=== PATIENT | female | born 1955 | race African-American/Black ===

== ENCOUNTER 2016-08-17 21:06 | Observation (INO) | payer OTHER ==
[2016-08-17 22:08] LABS: BASOPHIL 0.6 % (0-2.0); EOSINOPHIL 1.7 % (0-4.5); MCH 25.3 pg (25.7-33.7); MCHC 31.7 g/dl (32.0-36.0); MEAN CELL VOLUME 79.8 fl (80-96); MEAN PLT VOLUME 7.1 fl (7.5-11.1); NEUTROPHILS 59.8 % (42.8-82.8); PLATELET COUNT 345 K/MM3 (134-434); RDW 15.8 % (11.6-15.6); WHITE BLOOD COUNT 9.8 K/mm3 (4.0-10.0)
[2016-08-17 22:19] LABS: INR 0.95 (0.82-1.09); PROTHROMBIN TIME (PATIENT) 10.4 SEC (9.98-11.88)
--- NOTE | 2016-08-17 22:28 | PDOC ---
History of Present Illness - General History Source: Patient Exam Limitations: No Limitations - History of Present Illness Initial Comments: 08/18/16 00:04 The patient is a 61-year-old female with a significant past medical history of hypertension, diabetes, and two blocked arteries, and presents to the emergency department via EMS complaining of chest pain, dizziness, and shortness of breath for the last several days. She states she noticed the chest pain when she exerted herself at a family function. She describes the chest pain as 6/10 in severity, and localized to the left sternal border, without radiation. She reports associated nausea, dizziness, and diaphoresis. She was given sublingual nitroglycerine by EMS, and the symptoms resolved. Upon arrival to the ED, she reports no more chest pain and no other complaints. The patient denies headache. The patient denies fever, chills, abdominal pain, nausea, vomit, diarrhea and constipation. The patient denies dysuria, frequency , urgency and hematuria. Other past medical history: s/p endarterectomy Allergies: No known drug allergies Past Surgical History: endarterectomy Social History: Former smoker <Na Arrieta - Last Filed: 08/18/16 00:09> - General History Source: Patient <LeonVin - Last Filed: 08/18/16 19:49> - General Stated Complaint: CHEST PAIN Time Seen by Provider: 08/17/16 22:27 Past History <Na Arrieta - Last Filed: 08/18/16 00:09> <Vin Gaines - Last Filed: 08/18/16 19:49> - Past Medical History Allergies/Adverse Reactions: Allergies Allergy/AdvReac Type Severity Reaction Status Date / Time No Known Allergies Allergy Verified 08/17/16 21:39 Home Medications: Ambulatory Orders Aspirin [ASA -] 81 mg PO DAILY 08/17/16 Glyburide [Diabeta -] 1.25 mg PO DAILY 08/17/16 Hydrochlorothiazide [Hctz -] 25 mg PO DAILY 08/17/16 Losartan Potassium [Cozaar] 100 mg PO DAILY 08/17/16 Metformin HCl [Glucophage -] 500 mg PO DAILY 08/17/16 Venlafaxine HCl [Effexor -] 25 mg PO DAILY 08/17/16 Review of Systems - Review of Systems Able to Perform ROS?: Yes Comments:: 08/18/16 00:04 CONSTITUTIONAL: Present: (+) diaphoresis Absent: fever, chills, generalized weakness, malaise, loss of appetite HEENT: Absent: rhinorrhea, nasal congestion, throat pain, throat swelling, difficulty swallowing, mouth swelling, ear pain, eye pain, visual Changes CARDIOVASCULAR: Present: (+) chest pain Absent: syncope, palpitations, irregular heart rate, peripheral edema RESPIRATORY: Present: (+) dyspnea Absent: cough, orthopnea, wheezing, stridor, hemoptysis GASTROINTESTINAL: Present: (+) Nausea Absent: abdominal pain, abdominal distension, vomiting, diarrhea, constipation, melena, hematochezia GENITOURINARY: Absent: dysuria, frequency, urgency, hesitancy, hematuria, flank pain, genital pain MUSCULOSKELETAL: Absent: myalgia, arthralgia, joint swelling SKIN: Absent: rash, itching, pallor HEMATOLOGIC/IMMUNOLOGIC: Absent: easy bleeding, easy bruising, lymphadenopathy, frequent infections ENDOCRINE: Absent: unexplained weight gain, unexplained weight loss, heat intolerance, cold intolerance NEUROLOGIC: Present: (+) dizziness Absent: headache, focal weakness or paresthesias, unsteady gait, seizure, mental status changes, bladder or bowel incontinence PSYCHIATRIC: Absent: anxiety, depression, suicidal or homicidal ideation, hallucinations. <Na Arrieta - Last Filed: 08/18/16 00:09> *Physical Exam - Vital Signs Last Vital Signs Temp Pulse Resp BP Pulse Ox 97.5 F L 101 H 26 H 128/47 98 08/17/16 22:05 08/18/16 00:00 08/18/16 00:00 08/18/16 00:00 08/18/16 00:00 - Physical Exam Comments: 08/18/16 00:05 GENERAL: Well developed, well nourished. Awake and alert. No acute distress. HEENT: Normocephalic, atraumatic. PERRLA, EOMI. No conjunctival pallor. Sclera are non- icteric. Moist mucous membranes. Oropharynx is clear. NECK: Supple. Full ROM. No JVD. Carotid pulses 2+ and symmetric, without bruits. No thyromegaly. No lymphadenopathy. CARDIOVASCULAR: Regular rate and rhythm. No murmurs, rubs, or gallops. Distal pulses are 2+ and symmetric. PULMONARY: No evidence of respiratory distress. Lungs clear to auscultation bilaterally. No wheezing, rales or rhonchi. ABDOMINAL: Soft. Non-tender. Non-distended. No rebound or guarding. No organomegaly. Normoactive bowel sounds. MUSCULOSKELETAL Normal range of motion at all joints. No bony deformities or tenderness. No CVA tenderness. EXTREMITIES: No cyanosis. No clubbing. No edema. No calf tenderness. SKIN: Warm and dry. Normal capillary refill. No rashes. No jaundice. NEUROLOGICAL: Alert, awake, appropriate. Cranial nerves 2-12 intact. No deficits to light touch and temperature in face, upper extremities and lower extremities. No motor deficits in the in face, upper extremities and lower extremities. Normoreflexic in the upper and lower extremities. Normal speech. Toes are down-going bilaterally. Gait is normal without ataxia. PSYCHIATRIC: Cooperative. Good eye contact. Appropriate mood and affect. <Na Arrieta - Last Filed: 08/18/16 00:09> Heart Score/ECG Review - History History: Highly suspicious - Electrocardiogram EKG: Non specific repolarization disturbance - Age Age: 45-65 - Risk Factors Risk Factors Heart Score: Yes Hx Hypercholesterolemia, Yes Hx Hypertension, Yes Hx Diabetes, Yes Smoking History, Yes Hx Obesity Based on the list above the patient has:: >/=3 risk factors or Hx atherosclerotic disease - Troponin Troponin: </= normal limit - Score Heart Score - Total: 6 <Vin Gaines - Last Filed: 08/18/16 19:49> ED Treatment Course - LABORATORY CBC & Chemistry Diagram: 08/17/16 21:52 08/17/16 21:52 - ADDITIONAL ORDERS Additional order review: Laboratory Results 08/17/16 08/17/16 21:52 21:52 INR 0.95 Sodium 136 Potassium 3.9 Chloride 102 Carbon Dioxide 23 Anion Gap 11 BUN 22 H Creatinine 1.5 H Creat Clearance w eGFR 35.07 Random Glucose 174 H Calcium 9.4 Total Bilirubin 0.3 AST 22 ALT 28 Alkaline Phosphatase 79 Creatine Kinase 359 H CK-MB (CK-2) 1.997 Troponin I 0.07 H Total Protein 8.2 Albumin 4.2 08/17/16 21:52 RBC 4.53 MCV 79.8 L MCHC 31.7 L RDW 15.8 H MPV 7.1 L Neutrophils % 59.8 Lymphocytes % 33.0 Monocytes % 4.9 Eosinophils % 1.7 Basophils % 0.6 - Medications Given in the ED: ED Medications Discontinued Medications Generic Name Dose Route Start Last Admin Trade Name Nimisha PRN Reason Stop Dose Admin Aspirin 162 mg 08/17/16 23:45 08/18/16 00:00 Asa - PO 08/17/16 23:46 162 mg ONCE ONE Administration <Na Arrieta - Last Filed: 08/18/16 00:09> - LABORATORY CBC & Chemistry Diagram: 08/18/16 01:39 08/18/16 01:39 - ADDITIONAL ORDERS Additional order review: Laboratory Results 08/17/16 21:52 INR 0.95 08/17/16 21:52 RBC 4.53 MCV 79.8 L MCHC 31.7 L RDW 15.8 H MPV 7.1 L Neutrophils % 59.8 Lymphocytes % 33.0 Monocytes % 4.9 Eosinophils % 1.7 Basophils % 0.6 - RADIOLOGY Radiology Studies Ordered: Category Date Time Status CHEST X-RAY PORTABLE* [RAD] Stat Radiology 08/17/16 21:40 Taken <Vin Gaines - Last Filed: 08/18/16 19:49> Medical Decision Making - Medical Decision Making 08/18/16 19:49 Dr. Gaines: The scribe's documentation has been prepared under my direction and personally reviewed by me in its entirery. I confirm that the note above accurately reflects all work, treatment, procedures, and medical decision making performed by me. <Vin Gaines - Last Filed: 08/18/16 19:49> *DC/Admit/Observation/Transfer - Attestations Scribe Attestion: 08/18/16 00:05 Documentation prepared by Na Arrieta, acting as medical clinic manager for Vin Gaines DO. <Na Arrieta - Last Filed: 08/18/16 00:09> - Discharge Dispostion Admit: Yes <Vin Gaines - Last Filed: 08/18/16 19:49> Diagnosis at time of Disposition: Chest pain Qualifiers: Chest pain type: precordial chest pain Qualified Code(s): R07.2 - Precordial pain - Referrals
[2016-08-17 22:30] LABS: ALBUMIN 4.2 g/dl (3.4-5.0); CALCIUM 9.4 mg/dL (8.5-10.1); CREATININE 1.5 mg/dL (0.55-1.02)
[2016-08-17 22:34] VITALS: BMI 35.4
[2016-08-17 22:34] LABS: BILIRUBIN,TOTAL 0.3 mg/dL (0.2-1.0); TOT PROT 8.2 g/dl (6.4-8.2); TROPONIN I 0.07 ng/ml (0.00-0.05)
[2016-08-17] MEDS ORDERED: ASPIRIN 81 MG CHEWABLE TABLETS PO ONE (23:45)
[2016-08-17] MEDS ORDERED: ASPIRIN 81 MG CHEWABLE TABLETS ONE (23:54)
--- NOTE | 2016-08-18 | HP ---
[id number] HISTORY OF PRESENT ILLNESS: Patient is a 61 year old female with pmhx diabetes, hypertension, and depression who presents with chest pain. Patient notes that she was out with her friends having dinner, dancing and she began to experience midsternal chest discomfort as she describes squeezing pain. She notes that she has been having this chest pain for few days now and she usually makes a fist and presses to her midsternal area to alleviate the pain but today the pain was worse. She notes that upon arrival of EMS her chest pain was alleviated with nitroglycerin tablet. She notes that she developed tingling in her fingertips and was diaphoretic. Patient also reports drinking 2-3 beers and some rum at dinner. Patient reports that she was told by her PCP that her kidneys were dry and that she needs to drink more water. She denies any chest pain, SOB, chest pressure, headache, palpitations, diaphoresis or dizziness at the moment. ER course was notable for: (1) EKG normal sinus (2) Troponin mild elevation 0.07 (3) Elevated creatinine 1.5 Recent Travel: none PAST MEDICAL HISTORY: diabetes, hypertension and depression PAST SURGICAL HISTORY: Carotid endarterectomy Social History: Smoking: no Alcohol: yes Drugs: no Family History: noncontributory Allergies No Known Allergies Allergy (Verified 08/17/16 21:39) HOME MEDICATIONS: Medication Instructions Recorded Aspirin [ASA -] 81 mg PO DAILY 08/17/16 Glyburide [Diabeta -] 1.25 mg PO DAILY 08/17/16 Hydrochlorothiazide [Hctz -] 0 mg PO DAILY 08/17/16 Losartan Potassium [Cozaar] 100 mg PO DAILY 08/17/16 Metformin HCl [Glucophage -] 500 mg PO DAILY 08/17/16 Venlafaxine HCl [Effexor -] 0 mg PO ASDIR 08/17/16 REVIEW OF SYSTEMS CONSTITUTIONAL: Absent: fever, chills, diaphoresis, generalized weakness, malaise, loss of appetite, weight change HEENT: Absent: rhinorrhea, nasal congestion, throat pain, throat swelling, difficulty swallowing, mouth swelling, ear pain, eye pain, visual changes CARDIOVASCULAR: Present: chest pain Absent: syncope, palpitations, irregular heart rate, lightheadedness, peripheral edema RESPIRATORY: Absent: cough, shortness of breath, dyspnea with exertion, orthopnea, wheezing, stridor, hemoptysis GASTROINTESTINAL: Absent: abdominal pain, abdominal distension, nausea, vomiting, diarrhea, constipation, melena, hematochezia GENITOURINARY: Absent: dysuria, frequency, urgency, hesitancy, hematuria, flank pain, genital pain MUSCULOSKELETAL: Absent: myalgia, arthralgia, joint swelling, back pain, neck pain SKIN: Absent: rash, itching, pallor HEMATOLOGIC/IMMUNOLOGIC: Absent: easy bleeding, easy bruising, lymphadenopathy, frequent infections ENDOCRINE: Absent: unexplained weight gain, unexplained weight loss, heat intolerance, cold intolerance NEUROLOGIC: Absent: headache, focal weakness or paresthesias, dizziness, unsteady gait, seizure, mental status changes, bladder or bowel incontinence PSYCHIATRIC: Absent: anxiety, depression, suicidal or homicidal ideation, hallucinations. PHYSICAL EXAMINATION Vital Signs - 24 hr 08/17/16 08/17/16 08/18/16 22:05 22:15 00:00 Temperature 97.5 F L Pulse Rate 84 84 Pulse Rate [ 101 H Radial] Respiratory 18 26 H Rate Blood Pressure 119/53 Blood Pressure 128/47 [Right Arm] O2 Sat by Pulse 97 97 98 Oximetry (%) GENERAL: +Obese. Awake, alert, and fully oriented, in no acute distress. HEAD: Normal with no signs of trauma. EYES: Pupils equal, round and reactive to light, extraocular movements intact, sclera anicteric, conjunctiva clear. No lid lag. EARS, NOSE, THROAT: Ears normal, nares patent, oropharynx clear without exudates. Moist mucous membranes. NECK: Normal range of motion, supple without lymphadenopathy, JVD, or masses. LUNGS: Breath sounds equal, clear to auscultation bilaterally. No wheezes, and no crackles. No accessory muscle use. HEART: Regular rate and rhythm, normal S1 and S2 without murmur, rub or gallop. ABDOMEN: Soft, nontender, not distended, normoactive bowel sounds, no guarding, no rebound, no masses. No hepatomegaly or splenomegaly. MUSCULOSKELETAL: Normal range of motion at all joints. No bony deformities or tenderness. No CVA tenderness. UPPER EXTREMITIES: 2+ pulses, warm, well-perfused. No cyanosis. No clubbing. Cap refill <2 seconds. No peripheral edema. LOWER EXTREMITIES: 2+ pulses, warm, well-perfused. No calf tenderness. No peripheral edema. NEUROLOGICAL: Cranial nerves II-XII intact. Normal speech. Normal gait. PSYCHIATRIC: Cooperative. Good eye contact. Appropriate mood and affect. SKIN: Warm, dry, normal turgor, no rashes or lesions noted. Laboratory Results - last 24 hr 08/17/16 08/17/16 08/17/16 21:52 21:52 21:52 WBC 9.8 RBC 4.53 Hgb 11.4 Hct 36.1 MCV 79.8 L MCHC 31.7 L RDW 15.8 H Plt Count 345 MPV 7.1 L Neutrophils % 59.8 Lymphocytes % 33.0 Monocytes % 4.9 Eosinophils % 1.7 Basophils % 0.6 INR 0.95 Sodium 136 Potassium 3.9 Chloride 102 Carbon Dioxide 23 Anion Gap 11 BUN 22 H Creatinine 1.5 H Creat Clearance w eGFR 35.07 Random Glucose 174 H Calcium 9.4 Total Bilirubin 0.3 AST 22 ALT 28 Alkaline Phosphatase 79 Creatine Kinase 359 H CK-MB (CK-2) 1.997 Troponin I 0.07 H Total Protein 8.2 Albumin 4.2 Imaging CXR- no acute pathology EKG - Normal sinus rhythm at rate of 92 ASSESSMENT/PLAN: 61 year old female with pmhx of hypertension, diabetes and depression who presents with chest pain. 1.) Chest pain - Rule out ACS - Trend troponin/ ECG - Continue aspirin - Nitro/morphine PRN pain - O2 2L NC - Beta hailee - Cardiology consult - ECHO - Lipid panel - A1C 2.) Acute renal failure - Gentle IVF - Urine electrolytes - Avoid nephrotoxins - Trend creatinine 3.) HTN -Continue home meds 4.) Depression -Continue home meds 5.) Diabetes - Fingers sticks q4 - Hold Metformin - RISS Documentation prepared by Sandra Alberts, acting as medical dermatologist for Royce Martin D.O. <Royce Martin - Last Filed: 08/18/16 06:45> Visit type - Emergency Visit Emergency Visit: Yes Care time: The patient presented to the Emergency Department on the above date and was hospitalized for further evaluation of their emergent condition. - New Patient This patient is new to me today: Yes Date on this admission: 08/18/16 - Critical Care Critical Care patient: No
[2016-08-18] MEDS ORDERED: METOPROLOL TARTRATE 25 MG TABLET (FP) PO ONE (00:04)
[2016-08-18] MEDS ORDERED: METOPROLOL TARTRATE 25 MG TABLET (FP) ONE (00:33)
[2016-08-18] MEDS: SODIUM CHLORIDE 1,000 ML IV SCH (01:33)
[2016-08-18 01:51] LABS: MCH 25.2 pg (25.7-33.7); MCHC 31.7 g/dl (32.0-36.0); MEAN CELL VOLUME 79.4 fl (80-96); MEAN PLT VOLUME 7.1 fl (7.5-11.1); PLATELET COUNT 318 K/MM3 (134-434); RDW 15.8 % (11.6-15.6)
[2016-08-18 02:13] LABS: CHOLESTEROL 140 mg/dL (50-200)
[2016-08-18 02:21] LABS: CALCIUM 8.9 mg/dL (8.5-10.1); CREATININE 1.3 mg/dL (0.55-1.02); MAGNESIUM 2.1 mg/dL (1.8-2.4)
[2016-08-18 02:39] LABS: LDL CHOLESTEROL (ONLY SJRH) 83 mg/dL (5-100)
--- NOTE | 2016-08-18 09:52 | EKG ---
Test Reason : Blood Pressure : / mmHG Vent. Rate : 092 BPM Atrial Rate : 092 BPM P-R Int : 146 ms QRS Dur : 096 ms QT Int : 360 ms P-R-T Axes : 056 056 -10 degrees QTc Int : 445 ms NORMAL SINUS RHYTHM NONSPECIFIC ST AND T WAVE ABNORMALITY ABNORMAL ECG NO PREVIOUS ECGS AVAILABLE Confirmed by MAYRA NGUYEN, LJ ([id number]) on 08/18/2016 9:52:41 AM Referred By: Overread By: LJ NUNEZ MD
[2016-08-18] MEDS: ASPIRIN 81 MG CHEWABLE TABLETS PO SCH (10:27)
[2016-08-18] MEDS ORDERED: HEMOQUE TEST 1 EACH EACH ONE (11:20)
[2016-08-18] MEDS: INSULIN SLIDING SCALE (NOVOLOG) 1 VIAL SQ SCH ×3 (11:26→21:40)
--- NOTE | 2016-08-18 12:01 | CONSULT ---
Consult Consult Specialty:: Cardiology Referred by:: Hospitalist Reason for Consultation:: Cardiac evaluation - History of Present Illness Chief Complaint: Chest pain History of Present Illness: Patient is a 61 year old female with underlying history of CAD - non-obstructive via cardiac catheterization/coronary angiogram last in 2013 at [facility] in [place], in addition HTN and type 2 DM who presents to ED with complaints of mid substernal chest pressure and shortness of breath. Chest discomfort was non-radiating and denies palpitations. She was given SL NTG and pain gradually subsided. She denies paroxysmal nocturnal dyspnea or orthopnea. She denies fever or chills. She denies headache or lightheadedness. Cardiology consultation was called for further evaluation. - History Source History Provided By: Patient, Medical Record Limitations to Obtaining History: No Limitations - Past Medical History Cardio/Vascular: Yes: CAD, HTN Endocrine: Yes: Diabetes Mellitus - Alcohol/Substance Use Hx Alcohol Use: No - Smoking History Smoking history: Former smoker Have you smoked in the past 12 months: No Home Medications - Allergies Allergies/Adverse Reactions: Allergies Allergy/AdvReac Type Severity Reaction Status Date / Time No Known Allergies Allergy Verified 08/17/16 21:39 - Home Medications Home Medications: Ambulatory Orders Aspirin [ASA -] 81 mg PO DAILY 08/17/16 Glyburide [Diabeta -] 1.25 mg PO DAILY 08/17/16 Hydrochlorothiazide [Hctz -] 0 mg PO DAILY 08/17/16 Losartan Potassium [Cozaar] 100 mg PO DAILY 08/17/16 Metformin HCl [Glucophage -] 500 mg PO DAILY 08/17/16 Venlafaxine HCl [Effexor -] 0 mg PO ASDIR 08/17/16 Family Disease History - Family Disease History Family History: Denies Review of Systems - Review of Systems Constitutional: denies: Chills, Fever Cardiovascular: reports: Chest Pain, Shortness of Breath. denies: Palpitations Respiratory: reports: SOB. denies: Cough, Hemoptysis, Orthopnea, PND Gastrointestinal: denies: Abdominal Pain, Constipation, Diarrhea, Melena, Nausea , Rectal Bleeding, Vomiting Genitourinary: denies: Dysuria Neurological: denies: Dizziness, Headache, Seizure, Syncope Vital Signs: Vital Signs Temperature 97.8 F 08/18/16 10:00 Pulse Rate 73 08/18/16 10:00 Respiratory Rate 20 01/03/17 10:00 Blood Pressure 158/86 08/18/16 10:00 O2 Sat by Pulse Oximetry (%) 99 08/18/16 06:52 Neck: Yes: Supple Respiratory: Yes: CTA Bilaterally Gastrointestinal: Yes: Normal Bowel Sounds, Soft, Abdomen, Obese. No: Tenderness Cardiovascular: Yes: Regular Rate and Rhythm JVD: No Carotid Bruit: No PMI: Non-Displaced Heart Sounds: Yes: S1, S2 Edema: No - Other Data Labs, Other Data: INR, PTT INR 0.95 (0.82-1.09) 08/17/16 21:52 Laboratory Results - last 24 hr 08/17/16 08/17/16 08/17/16 21:52 21:52 21:52 WBC 9.8 RBC 4.53 Hgb 11.4 Hct 36.1 MCV 79.8 L MCHC 31.7 L RDW 15.8 H Plt Count 345 MPV 7.1 L Neutrophils % 59.8 Lymphocytes % 33.0 Monocytes % 4.9 Eosinophils % 1.7 Basophils % 0.6 INR 0.95 Sodium 136 Potassium 3.9 Chloride 102 Carbon Dioxide 23 Anion Gap 11 BUN 22 H Creatinine 1.5 H Creat Clearance w eGFR 35.07 POC Glucometer Random Glucose 174 H Hemoglobin A1c % Calcium 9.4 Magnesium Total Bilirubin 0.3 AST 22 ALT 28 Alkaline Phosphatase 79 Creatine Kinase 359 H CK-MB (CK-2) 1.997 Troponin I 0.07 H Total Protein 8.2 Albumin 4.2 Triglycerides Cholesterol Total LDL Cholesterol HDL Cholesterol Ur Random Sodium Ur Random Potassium Ur Random Chloride 08/18/16 08/18/16 08/18/16 01:39 01:39 01:39 WBC 10.0 RBC 4.24 Hgb 10.7 Hct 33.6 MCV 79.4 L MCHC 31.7 L RDW 15.8 H Plt Count 318 MPV 7.1 L Neutrophils % Lymphocytes % Monocytes % Eosinophils % Basophils % INR Sodium 137 Potassium 3.6 Chloride 99 Carbon Dioxide 26 Anion Gap 12 BUN 23 H Creatinine 1.3 H Creat Clearance w eGFR POC Glucometer Random Glucose 118 H D Hemoglobin A1c % Calcium 8.9 Magnesium 2.1 Total Bilirubin AST ALT Alkaline Phosphatase Creatine Kinase CK-MB (CK-2) Troponin I 0.11 H Total Protein Albumin Triglycerides Cholesterol Total LDL Cholesterol HDL Cholesterol Ur Random Sodium Ur Random Potassium Ur Random Chloride 08/18/16 08/18/16 08/18/16 01:39 01:39 02:24 WBC RBC Hgb Hct MCV MCHC RDW Plt Count MPV Neutrophils % Lymphocytes % Monocytes % Eosinophils % Basophils % INR Sodium Potassium Chloride Carbon Dioxide Anion Gap BUN Creatinine Creat Clearance w eGFR POC Glucometer 112.95230 Random Glucose Hemoglobin A1c % Calcium Magnesium Total Bilirubin AST ALT Alkaline Phosphatase Creatine Kinase CK-MB (CK-2) Troponin I Total Protein Albumin Triglycerides 338 H Cholesterol 140 Total LDL Cholesterol 83 HDL Cholesterol 31 L Ur Random Sodium 37 Ur Random Potassium 22.7 Ur Random Chloride 19 08/18/16 08/18/16 04:00 06:17 WBC RBC Hgb Hct MCV MCHC RDW Plt Count MPV Neutrophils % Lymphocytes % Monocytes % Eosinophils % Basophils % INR Sodium Potassium Chloride Carbon Dioxide Anion Gap BUN Creatinine Creat Clearance w eGFR POC Glucometer Random Glucose Hemoglobin A1c % 7.9 H Calcium Magnesium Total Bilirubin AST ALT Alkaline Phosphatase Creatine Kinase CK-MB (CK-2) Troponin I 0.10 H Total Protein Albumin Triglycerides Cholesterol Total LDL Cholesterol HDL Cholesterol Ur Random Sodium Ur Random Potassium Ur Random Chloride Sinus rhythm with nonspecific ST-T abnormality in inferior leads Echo: Pending Imaging - Results Chest X-ray: Report Reviewed (Unremarkable) EKG: Report Reviewed Problem List - Problems (1) Chest pain Code(s): R07.9 - CHEST PAIN, UNSPECIFIED Qualifiers: Chest pain type: precordial chest pain Qualified Code(s): R07.2 - Precordial pain (2) CAD (coronary artery disease) Code(s): I25.10 - ATHSCL HEART DISEASE OF [place] CORONARY ARTERY W/O ANG PCTRS Qualifiers: Coronary Disease-Associated Artery/Lesion type: [place] artery [place] vs. transplanted heart: [place] heart Associated angina: with unstable angina Qualified Code(s): I25.110 - Atherosclerotic heart disease of [place] coronary artery with unstable angina pectoris (3) Diabetes mellitus Code(s): E11.9 - TYPE 2 DIABETES MELLITUS WITHOUT COMPLICATIONS Qualifiers: Diabetes mellitus type: type 2 Diabetes mellitus complication status: without complication Diabetes mellitus nursing home insulin use: without nursing home use Qualified Code(s): E11.9 - Type 2 diabetes mellitus without complications (4) HTN (hypertension) Code(s): I10 - ESSENTIAL (PRIMARY) HYPERTENSION Qualifiers: Hypertension type: essential hypertension Qualified Code(s): I10 - Essential (primary) hypertension (5) Hypertriglyceridemia Code(s): E78.1 - PURE HYPERGLYCERIDEMIA Assessment/Plan 1. Chest pain syndrome - CAD non-obstructive, angina pectoris - ACS 2. HTN 3. Type 2 DM 4. Exogenous obesity 5. Hypertriglyceredemia PLAN: 1. Serial cardiac enzyme - trending down 2. Restart Losartan +/- low dose beta hailee 3. ASA 4. Transthoracic echocardiography to assess LV and valvular function 5. Consider nuclear myocardial perfusion imaging 6. Resume diabetes mellitus treatment 7. Obtain cardiac catheterization report from [facility] Further plans are to follow Samuel Dhillon MD
--- NOTE | 2016-08-18 13:09 | PN ---
Physical Exam: SUBJECTIVE: Patient seen and examined. She was laying in the stretcher in the ED, in no acute distress. States she had some very mild sternal discomfort this morning but has improved since she received Nitro from EMS. She denies shortness of breath. Tolerating room air. OBJECTIVE: Vital Signs Period Temp Pulse Resp BP Sys/Dubois Pulse Ox Last 24 Hr 97.8 F 73 20-20 158/86 99 GENERAL: The patient is awake, alert, and fully oriented, in no acute distress HEAD: Normal with no signs of trauma. EYES: PERRL, extraocular movements intact, sclera anicteric, conjunctiva clear. No ptosis. ENT: Ears normal, nares patent, oropharynx clear without exudates, moist mucous membranes. NECK: Trachea midline, full range of motion, supple. LUNGS: Breath sounds equal, clear to auscultation bilaterally, no wheezes HEART: Regular rate and rhythm ABDOMEN: Soft, nontender, nondistended, normoactive bowel sounds EXTREMITIES: 2+ pulses, warm, well-perfused, no edema. NEUROLOGICAL: Normal speech, gait not observed. PSYCH: Normal mood, normal affect. SKIN: dry scar on right side of neck s/p carotid endarterectomy Generic Name Dose Route Start Last Admin Trade Name Freq PRN Reason Stop Dose Admin Aspirin 81 mg 08/18/16 10:00 08/18/16 10:27 Asa - PO 81 mg DAILY G[place]ENIA Administration Sodium Chloride 1,000 mls @ 75 mls/hr 08/18/16 00:45 08/18/16 01:33 Normal Saline - IV 75 mls/hr ASDIR G[place]IA Administration Insulin Aspart 1 vial 08/18/16 07:00 08/18/16 11:26 Novolog Vial Sliding Scale - SQ Not Given ACHS [facility] Protocol Losartan Potassium 50 mg 08/18/16 12:45 Cozaar - PO DAILY [facility] Metoprolol Succinate 25 mg 08/19/16 10:00 Toprol Xl - PO DAILY [place] ASSESSMENT/PLAN: Patient is a 61 year old female with a significant past medical history of diabetes mellitus, hypertension, carotid artery disease s/p right carotid endarterectomy in 2006 and depression. She reports being in her usual state of health yesterday and was out with her family and friends having dinner, dancing and drinking when she began to experience a sudden onset of midsternal chest pain/discomfort that she describes as "tightness". She describes the "tightness " as non radiating but was accompanied with tingling in her fingertips with diaphoresis. Upon arrival of EMS, the tightness in her chest subsided after Nitroglycerin was administered. During my evaluation, she reported that the chest tightness has subsided. She denies any further chest pain, shortness of breath, palpitations, finger numbness, diaphoresis or dizziness. Called patient PCP and Endrocrinologist Dr. Batsheva Baugh and spoke to Delfina. Delfina to fax patient's medical records to us (fax no. provided). Medical reports include recent cardiac workup (EKG and cardiac cath). Cardiology: Chest Pain - Acute Assessment/Plan: Rule out ACS. Chest pain has resolved. Troponins 0.11, 0.10, awaiting third troponin EKG: Normal sinus rhythm with non specific ST and T wave abnormality, no previous EKG to compare On ASA 81mg, Metoprolol 25mg daily, Losartan 50mg daily. Nitro as needed for chest pain, Morphine as needed, supplemental oxygen prn Echo pending Hypertension - chronic Assessment/Plan: hypertension controlled on Metoprolol 25mg daily, Losartan 50mg daily. Monitor BPs Hyperlipidemia - chronic Assessment/Plan: Started on Lipitor 40mg at HS : Acute Renal Failure - most likely chronic secondary to home med of HCTZ Assessment/Plan: Trend BUN/Creatinine with gentle hydration on NS at 75cc/hr Hold home med of HCTZ Endocrine: Diabetes Mellitus - chronic Assessment/Plan: BGMs and Novolog sliding scale. Holding home meds Psych: Depression - chronic Assessment/Plan: Continue Effexor F.E.N. Fluids: Normal Saline @ 75/cc/hr Electrolytes: noted dehydration, home HCTZ on hold Nutrition: Diabetic diet Prophylaxis: SCDs, ambulation GI: Colace PRN Disposition: Requires observation. Full Code. Visit type - Emergency Visit Emergency Visit: Yes ED Registration Date: 08/18/16 Care time: The patient presented to the Emergency Department on the above date and was hospitalized for further evaluation of their emergent condition. - New Patient This patient is new to me today: Yes Date on this admission: 08/18/16 - Critical Care Critical Care patient: No - Discharge Referral Referred to [facility] Med P.C.: No
[2016-08-18] MEDS: LOSARTAN POTASSIUM 50 MG TABLET (FP) PO SCH (13:12)
[2016-08-18] MEDS ORDERED: morphine CARPU-JECT 2 MG/1 ML DISP.SYRIN IVPUSH PRN (17:49)
[2016-08-18] MEDS: ATORVASTATIN CA 40 MG TABLET (FP) PO SCH (21:40)
[2016-08-19] MEDS: INSULIN SLIDING SCALE (NOVOLOG) 1 VIAL SQ SCH ×4 (06:15→22:05)
[2016-08-19] MEDS: SODIUM CHLORIDE 1,000 ML IV SCH (06:16)
[2016-08-19 08:20] LABS: TROPONIN I < 0.02 ng/ml (0.00-0.05)
[2016-08-19 11:43] LABS: ANION GAP 10 (8-16); CALCIUM 8.4 mg/dL (8.5-10.1); CO2 24 mmol/L (21-32); CREATININE 0.9 mg/dL (0.55-1.02); GLUCOSE,RANDOM 117 mg/dL (74-106)
--- NOTE | 2016-08-19 12:43 | PN ---
Progress Note (short form) - Note Progress Note: S: 61 year old female admitted with chest pain syndrome. History of CAD, angina pectoris, carotid artery disease, s/p right carotid endarterectomy, hypertension, HCVD, NIDDM. No further episodes of chest pain or discomfort reported. No dyspnea, PND, or orthopnea. No palpitations, lightheadedness, dizziness, or syncope. Active Medications Generic Name Dose Route Start Last Admin Trade Name Freq PRN Reason Stop Dose Admin Aspirin 81 mg 08/18/16 10:00 08/18/16 10:27 Asa - PO 81 mg DAILY [place] Administration Atorvastatin Calcium 40 mg 08/18/16 22:00 08/18/16 21:40 Lipitor - PO Not Given HS [place] Sodium Chloride 1,000 mls @ 75 mls/hr 08/18/16 00:45 08/19/16 06:16 Normal Saline - IV 75 mls/hr ASDIR [place] Administration Insulin Aspart 1 vial 08/18/16 07:00 08/19/16 06:15 Novolog Vial Sliding Scale - SQ Not Given ACHS [place] Protocol Losartan Potassium 50 mg 08/18/16 12:45 08/18/16 13:12 Cozaar - PO 50 mg DAILY [place] Administration Metoprolol Succinate 25 mg 08/19/16 10:00 Toprol Xl - PO DAILY [place] Morphine Sulfate 1 mg 08/18/16 17:49 Morphine Injection - IVPUSH 08/19/16 17:48 Q4H PRN PAIN Venlafaxine HCl 25 mg 08/19/16 10:00 Effexor - PO DAILY [facility] O: 61 year old obese female was in no acute distress. No pallor, cyanosis, clubbing, or jaundice. Last Vital Signs Temp Pulse Resp BP Pulse Ox 98.1 F 67-regular 18 121/55 100 08/18/16 22:00 08/19/16 06:00 08/19/16 06:00 08/19/16 06:00 08/18/16 21:00 NECK: Supple, no JVD, negative HJR, carotids were equal and upstrokes were normal, bilateral carotid bruits, well healed right carotid endarterectomy scar , no thyromegaly appreciated. HEART: PMI was in the 5th intercostal space, no heaves or thrills, S1 and S2 were normal. No murmurs or gallops were appreciated. LUNGS: Clear on auscultation bilaterally. ABDOMEN: Soft, nontender, no hepatosplenomegaly appreciated, and no palpable masses were felt. EXTREMITIES: No calf tenderness or dependent edema. Pulses are normal. CBC, BMP 08/18/16 01:39 08/19/16 05:35 Laboratory Results - last 24 hr 08/18/16 08/18/16 08/18/16 18:20 18:30 21:37 Sodium Potassium Chloride Carbon Dioxide Anion Gap BUN Creatinine POC Glucometer 165 Random Glucose Calcium Creatine Kinase 401 H CK-MB (CK-2) Troponin I 0.02 Cancelled 08/19/16 08/19/16 08/19/16 05:35 05:35 05:59 Sodium 142 Cancelled Potassium 4.5 D Cancelled Chloride 108 H Cancelled Carbon Dioxide 24 Cancelled Anion Gap 10 Cancelled BUN 17 D Cancelled Creatinine 0.9 D Cancelled POC Glucometer 123 Random Glucose 117 H Cancelled Calcium 8.4 L Cancelled Creatine Kinase 330 H CK-MB (CK-2) 1.807 Troponin I < 0.02 Impression: 1. History of CAD, angina pectoris. 2. Chest pain syndrome most likely related to # 1. 3. Hypertension, hypertensive cardiovascular disease. 4. Hypercholesterolemia. 5. Hx of NIDDM. 6. Exogenous obesity. Recommendations: 1. Myoview stress test 2. Obtain cardiac catheterization report from PCP. 3. Risk modifications. 4. Progressive ambulation. 5. Further suggestions will depend upon the results of the above mentioned tests. 1252 08/19/16 Documentation prepared by Jennifer Grimm, acting as emergency medical technician/driver for Clyde Vanegas MD. Problem List - Problems (1) CAD (coronary artery disease) Code(s): I25.10 - ATHSCL HEART DISEASE OF [place] CORONARY ARTERY W/O ANG PCTRS Qualifiers: Coronary Disease-Associated Artery/Lesion type: [place] artery [place] vs. transplanted heart: [place] heart Associated angina: with unstable angina Qualified Code(s): I25.110 - Atherosclerotic heart disease of [place] coronary artery with unstable angina pectoris (2) Chest pain Code(s): R07.9 - CHEST PAIN, UNSPECIFIED Qualifiers: Chest pain type: precordial chest pain Qualified Code(s): R07.2 - Precordial pain (3) Diabetes mellitus Code(s): E11.9 - TYPE 2 DIABETES MELLITUS WITHOUT COMPLICATIONS Qualifiers: Diabetes mellitus type: type 2 Diabetes mellitus complication status: without complication Diabetes mellitus [employer] insulin use: without [employer] use Qualified Code(s): E11.9 - Type 2 diabetes mellitus without complications (4) HTN (hypertension) Code(s): I10 - ESSENTIAL (PRIMARY) HYPERTENSION Qualifiers: Hypertension type: essential hypertension Qualified Code(s): I10 - Essential (primary) hypertension (5) Hypertriglyceridemia Code(s): E78.1 - PURE HYPERGLYCERIDEMIA
[2016-08-19] MEDS ORDERED: DIPYRIDAMOLE 50 MG/10 ML VIAL IVPB ONE (14:08)
--- NOTE | 2016-08-19 15:03 | PN ---
Physical Exam: SUBJECTIVE: Patient seen and examined. She denies current chest pressure/ tightness. She prefers not to take several medications OBJECTIVE: Vital Signs Period Temp Pulse Resp BP Sys/Dubois Pulse Ox Last 24 Hr 98.1 F 67-77 18-18 112-121/47-55 100 PE Neuro: alert, awake, cn 2-12intact HEENT: R carotid neck scar healed Pulm: CTAB CV: s1 s2 rrr + b/l carotid bruit Abd: s nt nd + bs Ext: warm, no le edema Laboratory Results - last 24 hr 08/18/16 08/18/16 08/18/16 18:20 18:30 21:37 Sodium Potassium Chloride Carbon Dioxide Anion Gap BUN Creatinine POC Glucometer 165 Random Glucose Calcium Creatine Kinase 401 H CK-MB (CK-2) Troponin I 0.02 Cancelled 08/19/16 08/19/16 08/19/16 05:35 05:35 05:59 Sodium 142 Cancelled Potassium 4.5 D Cancelled Chloride 108 H Cancelled Carbon Dioxide 24 Cancelled Anion Gap 10 Cancelled BUN 17 D Cancelled Creatinine 0.9 D Cancelled POC Glucometer 123 Random Glucose 117 H Cancelled Calcium 8.4 L Cancelled Creatine Kinase 330 H CK-MB (CK-2) 1.807 Troponin I < 0.02 Active Medications Generic Name Dose Route Start Last Admin Trade Name Nimisha PRN Reason Stop Dose Admin Aspirin 81 mg 08/18/16 10:00 08/18/16 10:27 Asa - PO 81 mg DAILY [place] Administration Atorvastatin Calcium 40 mg 08/18/16 22:00 08/18/16 21:40 Lipitor - PO Not Given HS [place] Sodium Chloride 1,000 mls @ 75 mls/hr 08/18/16 00:45 08/19/16 06:16 Normal Saline - IV 75 mls/hr ASDIR [place] Administration Insulin Aspart 1 vial 08/18/16 07:00 08/19/16 08:00 Novolog Vial Sliding Scale - SQ Not Given ACHS [place] Protocol Losartan Potassium 50 mg 08/18/16 12:45 08/18/16 13:12 Cozaar - PO 50 mg DAILY [place] Administration Metoprolol Succinate 25 mg 08/19/16 10:00 Toprol Xl - PO DAILY [place] Morphine Sulfate 1 mg 08/18/16 17:49 Morphine Injection - IVPUSH 08/19/16 17:48 Q4H PRN PAIN Venlafaxine HCl 25 mg 08/19/16 10:00 Effexor - PO DAILY [place] Assessment: 61 year old female with DM II, HTN, s/p R carotid endarterectomy in 2006 and depression admitted with chest tightness. Plan: 1. Angina/Chest tightness/pain/ CAD - Stress test today - r/o [place] serial trops negative - Cont metoprolol 25mg daily - Cont ASA - ECHO 08/18/15: normal LV size/fxn, no wall motion abnormality, mild MR/TR - Cath report from pcp office Dr. Batsheva Baugh [phone] - D/w cardiology 2. HTN - Cont Toprol 25mg daily - Cont Losartan 50mg daily 3. HLD - Lipitor 40mg daily 4. DANIEL - Resolved, likely medication induced - Discontinue HCTZ/metformin - Stop fluids 5. DM II, uncontrolled - Hold po antidiabetics - ISS, BGM ACHS 6. Depression - Cont effexor Dispo: - Awaiting stress test results Visit type - Emergency Visit Emergency Visit: Yes ED Registration Date: 08/18/16 Care time: The patient presented to the Emergency Department on the above date and was hospitalized for further evaluation of their emergent condition. - New Patient This patient is new to me today: Yes Date on this admission: 08/19/16 - Critical Care Critical Care patient: No - Discharge Referral Referred to [facility] Med P.C.: No
[2016-08-19] MEDS: LOSARTAN POTASSIUM 50 MG TABLET (FP) PO SCH (17:31)
[2016-08-19] MEDS: ASPIRIN 81 MG CHEWABLE TABLETS PO SCH (17:31)
[2016-08-19] MEDS: METOPROLOL SUCCINATE 25 MG TAB.SR.24H (FP) PO SCH ×2 (17:31→17:53)
[2016-08-19] MEDS: VENLAFAXINE HCL 25 MG TABLET PO SCH (17:52)
--- NOTE | 2016-08-19 22:02 | HOSP ---
Physical Examination Vital Signs: Vital Signs Temperature 97.8 F 08/19/16 20:37 Pulse Rate 66 08/19/16 20:37 Respiratory Rate 20 08/19/16 20:40 Blood Pressure 122/51 08/19/16 20:37 O2 Sat by Pulse Oximetry (%) 97 08/19/16 20:40 Labs: CBC, BMP 08/19/16 05:35 Hospitalist Encounter Outcome: Called by nurse, pt reports she is on CPAP at night, unsure of settings, she remembers a 3. Respiratory contacted who evaluated pt. Pt comfortable on CPAP of 7, FIO2 25%. Orders placed for same.
[2016-08-19] MEDS: ATORVASTATIN CA 40 MG TABLET (FP) PO SCH (22:06)
[2016-08-20] MEDS: INSULIN SLIDING SCALE (NOVOLOG) 1 VIAL SQ SCH ×3 (06:22→17:29)
--- NOTE | 2016-08-20 09:33 | PN ---
Progress Note, Physician Chief Complaint: Events noted Placed on CPAP last night, probably she has sleep apnea. Denies chest pain, SOB or palpitation Cardiac catheterization in 2012 showed 60% distal LAD and 50% ostial Circ - spoke with her PMD in [place]. Prior nuclear stress testing showed small inferolateral ischemia with normal LVEF. Current nuclear myocardial perfusion imaging showed small apical and lateral ischemia with normal LVEF History of Present Illness: Patient was seen and examined. Awake and alert. Chart was reviewed Denies chest pain, SOB or palpitation this am - Current Medication List Current Medications: Active Medications Aspirin (Asa -) 81 mg PO DAILY [facility] Last Admin: 08/19/16 17:31 Dose: 81 mg Atorvastatin Calcium (Lipitor -) 40 mg PO HS [facility] Last Admin: 08/19/16 22:06 Dose: Not Given Insulin Aspart (Novolog Vial Sliding Scale -) 1 vial SQ ACHS [facility] PRN Reason: Protocol Last Admin: 08/20/16 06:22 Dose: 2 units Losartan Potassium (Cozaar -) 50 mg PO DAILY [facility] Last Admin: 08/19/16 17:31 Dose: 50 mg Metoprolol Succinate (Toprol Xl -) 25 mg PO DAILY [facility] Last Admin: 08/19/16 17:53 Dose: 25 mg Venlafaxine HCl (Effexor -) 25 mg PO DAILY [facility] Last Admin: 08/19/16 17:52 Dose: Not Given - Objective Vital Signs: Vital Signs Temperature 98.0 F 08/20/16 06:00 Pulse Rate 71 08/20/16 06:00 Respiratory Rate 20 08/20/16 06:00 Blood Pressure 131/55 08/20/16 06:00 O2 Sat by Pulse Oximetry (%) 100 08/20/16 02:00 Neck: Yes: Supple Cardiovascular: Yes: Regular Rate and Rhythm, S1, S2 Respiratory: Yes: Diminished Gastrointestinal: Yes: Normal Bowel Sounds, Soft, Abdomen, Obese. No: Tenderness Edema: No Additional Findings/Remarks: - Review of Systems Constitutional: denies: Chills, Fever Cardiovascular: denies: Chest Pain, Shortness of Breath. denies: Palpitations Respiratory: denies: SOB. denies: Cough, Hemoptysis, Orthopnea, PND Gastrointestinal: denies: Abdominal Pain, Constipation, Diarrhea, Melena, Nausea , Rectal Bleeding, Vomiting Genitourinary: denies: Dysuria Neurological: denies: Dizziness, Headache, Seizure, Syncope Labs: CBC, BMP 08/19/16 05:35 Problem List - Problems (1) Chest pain Code(s): R07.9 - CHEST PAIN, UNSPECIFIED Qualifiers: Chest pain type: precordial chest pain Qualified Code(s): R07.2 - Precordial pain (2) CAD (coronary artery disease) Code(s): I25.10 - ATHSCL HEART DISEASE OF [place] CORONARY ARTERY W/O ANG PCTRS Qualifiers: Coronary Disease-Associated Artery/Lesion type: [place] artery [place] vs. transplanted heart: [place] heart Associated angina: with unstable angina Qualified Code(s): I25.110 - Atherosclerotic heart disease of [place] coronary artery with unstable angina pectoris (3) Diabetes mellitus Code(s): E11.9 - TYPE 2 DIABETES MELLITUS WITHOUT COMPLICATIONS Qualifiers: Diabetes mellitus type: type 2 Diabetes mellitus complication status: without complication Diabetes mellitus correction insulin use: without correction use Qualified Code(s): E11.9 - Type 2 diabetes mellitus without complications (4) HTN (hypertension) Code(s): I10 - ESSENTIAL (PRIMARY) HYPERTENSION Qualifiers: Hypertension type: essential hypertension Qualified Code(s): I10 - Essential (primary) hypertension (5) Hypertriglyceridemia Code(s): E78.1 - PURE HYPERGLYCERIDEMIA Assessment/Plan 1. Chest pain syndrome - CAD non-obstructive, angina pectoris 2. HTN 3. Type 2 DM 4. Exogenous obesity 5. Hypertriglyceredemia PLAN: 1. Continue Toprol XL and Cozaar (uptitrate) 2. Add Ranexa 500 mg BID and titrate up 3. ASA 4. Optimize medical therapy for now, but if she continues to be symptomatic, she may need further cardiac evaluation with cardiac catheterization/coronary angiogram. Further plans are to follow. If clinically stable, discharge planning and to follow up with her PMD in [place] Samuel Dhillon MD
[2016-08-20] MEDS ORDERED: PT OWN MED DRAWER 7, Y5N ONE (10:02)
[2016-08-20] MEDS: LOSARTAN POTASSIUM 50 MG TABLET (FP) PO SCH (10:09)
[2016-08-20] MEDS: ASPIRIN 81 MG CHEWABLE TABLETS PO SCH (10:09)
[2016-08-20] MEDS: METOPROLOL SUCCINATE 25 MG TAB.SR.24H (FP) PO SCH (10:09)
[2016-08-20] MEDS: VENLAFAXINE HCL 25 MG TABLET PO SCH (10:09)
[2016-08-20] MEDS ORDERED: RANOLAZINE E.R. 500 MG TABLET (FP) PO SCH (11:00)
--- NOTE | 2016-08-20 14:54 | PN ---
Physical Exam: SUBJECTIVE: Patient seen and examined. She states she feels well, she doesn't get the pressure a lot but its a tightness. OBJECTIVE: Vital Signs Period Temp Pulse Resp BP Sys/Dubois Pulse Ox Last 24 Hr 97.8 F-98.7 F 66-89 18-20 113-164/44-89 96-100 PE Neuro: alert, awake, cn 2-12intact HEENT: R carotid neck scar healed Pulm: CTAB CV: s1 s2 rrr + b/l carotid bruit Abd: s nt nd + bs Ext: warm, no le edema Laboratory Results - last 24 hr 08/19/16 08/20/16 08/20/16 22:03 04:46 11:46 POC Glucometer 174 158 204 Active Medications Generic Name Dose Route Start Last Admin Trade Name Freq PRN Reason Stop Dose Admin Aspirin 81 mg 08/18/16 10:00 08/20/16 10:09 Asa - PO 81 mg DAILY [place] Administration Atorvastatin Calcium 40 mg 08/18/16 22:00 08/19/16 22:06 Lipitor - PO Not Given HS [facility] Insulin Aspart 1 vial 08/18/16 07:00 08/20/16 11:49 Novolog Vial Sliding Scale - SQ 4 units ACHS [place] Administration Protocol Losartan Potassium 50 mg 08/18/16 12:45 08/20/16 10:09 Cozaar - PO 50 mg DAILY [facility] Administration Metoprolol Succinate 25 mg 08/19/16 10:00 08/20/16 10:09 Toprol Xl - PO 25 mg DAILY [place] Administration Ranolazine 500 mg 08/20/16 11:00 08/20/16 11:49 Ranexa - PO 500 mg BID [place] Administration Venlafaxine HCl 25 mg 08/19/16 10:00 08/20/16 10:09 Effexor - PO 25 mg DAILY [facility] Administration Imaging: - ECHO 08/18/15: normal LV size/fxn, no wall motion abnormality, mild MR/TR Assessment: 61 year old female with DM II, HTN, s/p R carotid endarterectomy in 2006 and depression admitted with chest tightness. Plan: 1. Angina/Chest tightness/pain/ CAD - Stress test 08/19 shows old inferolateral ischemia, normal LVEF - Start Ranexa 500mg BID - Metoprolol 25mg daily - Cont ASA - Trops negative x3 - Cardiac cath report from 2012 shows distal LAD 60% and ostial circ 50% per Dr. Sandhu PCP in [place] [phone] 2. Sleep Apnea - Pt does report she uses CPAP machine at home, she goes to a sleep clinic - CPAP at night 3. . HTN - Cont Toprol xl 25mg daily - Cozzar 50mg daily 4. HLD - Lipitor 40mg daily 5. DANIEL - Resolved with fluids, likely medication induced - Discontinue HCTZ/metformin 6. DM II, uncontrolled - Hold po antidiabetics - ISS, BGM ACHS 7. Depression - Cont Effexor Visit type - Emergency Visit Emergency Visit: Yes ED Registration Date: 08/18/16 Care time: The patient presented to the Emergency Department on the above date and was hospitalized for further evaluation of their emergent condition. - New Patient This patient is new to me today: No - Critical Care Critical Care patient: No - Discharge Referral Referred to [facility] Med P.C.: No
[2016-08-20 18:31] VITALS: BP 144/84; PULSE 67; TEMP 97.7
--- NOTE | 2016-08-21 09:24 | DS ---
Physical Exam: SUBJECTIVE: Patient seen and examined. Pt stable on discharge. No active complaints. Discussed new medications, pt understands. OBJECTIVE: Vital Signs Period Temp Pulse Resp BP Sys/Dubois Pulse Ox Last 24 Hr 97.7 F-98.7 F 67-74 18-20 121-148/63-89 98 PE Neuro: alert, awake, cn 2-12intact HEENT: R carotid neck scar healed Pulm: CTAB CV: s1 s2 rrr + b/l carotid bruit Abd: s nt nd + bs Ext: warm, no le edema Laboratory Results - last 24 hr 08/20/16 08/20/16 11:46 15:52 POC Glucometer 204 213 HOSPITAL COURSE: Date of Admission:08/18/16 Date of Discharge: 08/20/16 Minutes to complete discharge: 35 Discharge Summary Reason For Visit: CHEST PAIN Hospital Course: Initial Hospital Course: Briefly, this 61 year old female with pmhx DM II, HTN, and depression admitted with chest pain/tightness. Patient was out with her friends having dinner, dancing and she began to experience midsternal chest discomfort and described a squeezing pain. She noted had this chest pain for few days and she usually makes a fist and presses to her midsternal area to alleviate the pain but during this episode the pain was worse. Upon arrival of EMS her chest pain was alleviated with nitroglycerin tablet. She noted developing a tingling in her fingertips and was diaphoretic. Patient had 2-3 beers and some rum at dinner. Patient PCP told her kidneys were dry and that she needs to drink more water. Imaging: - ECHO 08/18/15: normal LV size/fxn, no wall motion abnormality, mild MR/TR Hospital Course/Progress Note/Discharge Summary by a/p: Assessment: 61 year old female with DM II, HTN, s/p R carotid endarterectomy in 2006 and depression admitted with chest tightness. Plan: 1. Angina/Chest tightness/pain/ CAD - Stress test 08/19 shows old inferolateral ischemia, normal LVEF - Started on Ranexa 500mg BID - Stared on Metoprolol 25mg daily - Cont ASA - Trops negative x3 - Cardiac cath report from 2012 shows distal LAD 60% and ostial circ 50% per Dr. Calderon PCP in [place] [phone] 2. Sleep Apnea - Pt does report she uses CPAP machine at home, she goes to a sleep clinic - Continue CPAP at night 3. HTN - Toprol xl 25mg daily - Decreased dose: Cozzar 50mg daily 4. HLD - Started Lipitor 40mg daily - D/w pt for Liver enzyme monitoring 5. DANIEL - Resolved with fluids, likely medication induced - Discontinue HCTZ 6. DM II, uncontrolled - Restart PO antidiabetics - Dr. Herman pt life enrichment specialist managing pt DM, hgb a1c down from 10 7. Depression - Cont Effexor Dispo: - Home with above meds and pcp follow up on 09/13/15 - Called [facility] [phone] for over the phone prescription, called pt, everyone is aware - Called for authorization for ranexa to insurance, pt is approved for 36 months Condition: Stable - Instructions Diet, Activity, Other Instructions: Please return to the ED for any new, persistent, or worsening symptoms. Follow up with your PCP in 1 week. For BP checks and liver enzymes as we have started you on Lipitor. Resume home medications as directed Take new medications as directed and regularly (Lipitor 40mg at bedtime, metoprolol xl 25mg daily, Losartan 50mg, Ranexa 500mg BID for chest tightness ) Referrals: STAFF,NOT ON [Primary Care Provider] - 1 Week (Dr. Calderon [phone]) Disposition: HOME - Home Medications Comprehensive Discharge Medication List: Ambulatory Orders Aspirin [ASA -] 81 mg PO DAILY 08/17/16 Glyburide [Micronase -] 1.25 mg PO DAILY 08/17/16 Metformin HCl [Glucophage -] 500 mg PO DAILY 08/17/16 Venlafaxine HCl [Effexor -] 25 mg PO DAILY 08/17/16 Atorvastatin Ca [Lipitor] 40 mg PO HS #30 tablet 08/20/16 Losartan Potassium [Cozaar -] 50 mg PO DAILY #30 tablet 08/20/16 Metoprolol Succinate [Toprol XL -] 25 mg PO DAILY #30 tab.sr.24h 08/20/16 Ranolazine [Ranexa -] 500 mg PO BID #60 tab 08/20/16 This patient is new to me today: No Emergency Visit: Yes ED Registration Date: 08/18/16 Care time: The patient presented to the Emergency Department on the above date and was hospitalized for further evaluation of their emergent condition. Critical Care patient: No - Discharge Referral Referred to [facility] Med P.C.: No
== END 2016-08-20 19:53 | disposition home or self-care (01) ==
LOC: JER 21:06 → JERBED 08-18 07:20 → J4W 08-18 18:00
PROVIDERS: ADMIT Internal Medicine; ATTEND Nurse Practitioner Acute Care
DX: R07.89 Other chest pain (principal); F32.9 Major depressive disorder, single episode, unspecified; N17.9 Acute kidney failure, unspecified; Z87.891 Personal history of nicotine dependence; E78.1 Pure hyperglyceridemia; E66.09 Other obesity due to excess calories; Z68.35 Body mass index [BMI] 35.0-35.9, adult; Z71.3 Dietary counseling and surveillance; I11.9 Hypertensive heart disease without heart failure; E11.65 Type 2 diabetes mellitus with hyperglycemia; I25.110 Atherosclerotic heart disease of native coronary artery with unstable angina pectoris; G47.39 Other sleep apnea
CPT/HCPCS: 36415; 71010-TC; 78452-TC; 80048; 80053; 80061; 82436; 82550; 82553; 83036; 83721; 83735; 84133; 84300; 84484; 85025; 85027; 85610; 93005; 93010; 93017; 93306-TC; 94660; 99285-25; A9502; G0378; J1245